=== PATIENT | female | born 1960 | race American Indian/Alaskan Native ===

== ENCOUNTER 2017-03-16 02:56 | Emergency (ER) | payer BC ==
[2017-03-16 02:56] VITALS: BMI 42.0
[2017-03-16 03:18] VITALS: RESP 18; TEMP 98.6
--- NOTE | 2017-03-16 03:31 | ED PDOC ---
Arrival/HPI <Pelon Jorgensen - Last Filed: 03/16/17 06:16> - History of Present Illness Time/Duration: < week Symptom Onset: Sudden Symptom Course: Unchanged Quality: Stabbing Context: Home <Sandra Miller - Last Filed: 03/16/17 07:45> - General Chief Complaint: Back Pain Time Seen by Provider: 03/16/17 02:59 - History of Present Illness Narrative History of Present Illness (Text): 03/16/17 03:27 56 y/o F with PMHx of HTN, PE in past, chronic low back pain presents for right sided low back pain that began about 3 days ago. Pain improved 2 days ago but then return yesterday. Patient radiated to right side of abdomen. Pain is intermittent and sharp in nature. Currently pain is 10/10 in nature. Patient states when pain is present, it is associated with nausea. Patient also complains of right calf "Juan Jose horse". Patient denies having any dysuria, hematuria, trauma to back, abd pain, D/C, F/C. Denies having any numbness or tingling, or any urinary or bowel incontinence. (Sandra Miller) Past Medical History - Provider Review Nursing Documentation Reviewed: Yes - Travel History Have you recently traveled outside [place] w/in the past 3 mons?: No - Cardiac Hx Cardiac Disorders: Yes Hx Hypertension: Yes - Pulmonary Hx Respiratory Disorders: No - Neurological Hx Neurological Disorder: No - HEENT Hx HEENT Disorder: No - Renal Hx Renal Disorder: No - Endocrine/Metabolic Hx Endocrine Disorders: No - Hematological/Oncological Hx Blood Disorders: No - Integumentary Hx Dermatological Disorder: No - Musculoskeletal/Rheumatological Hx Musculoskeletal Disorders: No - Gastrointestinal Hx Gastrointestinal Disorders: No - Genitourinary/Gynecological Hx Genitourinary Disorders: No - Psychiatric Hx Psychophysiologic Disorder: No Hx Substance Use: No - Surgical History Hx Hysterectomy: Yes (2009) <Sandra Miller - Last Filed: 03/16/17 07:45> Family/Social History - Physician Review Nursing Documentation Reviewed: Yes Family/Social History: Unknown Family HX Smoking Status: Never Smoked Hx Alcohol Use: No Hx Substance Use: No <Sandra Miller - Last Filed: 03/16/17 07:45> Allergies/Home Meds <Pelon Jorgensen - Last Filed: 03/16/17 06:16> <Sandra Miller - Last Filed: 03/16/17 07:45> Allergies/Adverse Reactions: Allergies Penicillins Allergy (Verified 03/16/17 03:10) ITCHING Review of Systems - Review of Systems Constitutional: Normal. absent: Fatigue, Fevers Eyes: Normal. absent: Vision Changes, Photophobia ENT: Normal. absent: Sore Throat, Rhinorrhea Respiratory: Normal. absent: SOB, Cough, Sputum, Wheezing Cardiovascular: Normal, Calf Pain. absent: Chest Pain, Edema Gastrointestinal: Normal. absent: Abdominal Pain, Constipation, Diarrhea, Nausea, Vomiting Genitourinary Female: Normal. absent: Dysuria, Frequency, Hematuria Musculoskeletal: Back Pain (right low back pain ) Skin: Normal. absent: Rash, Pruritis, Skin Lesions Neurological: Normal. absent: Headache, Dizziness, Focal Weakness Endocrine: Normal. absent: Diaphoresis, Polyuria Hemo/Lymphatic: Normal. absent: Adenopathy, Easy Bleeding <Sandra Miller - Last Filed: 03/16/17 07:45> Physical Exam Temperature: Afebrile Blood Pressure: Hypertensive Pulse: Regular Respiratory Rate: Normal Appearance: Positive for: Uncomfortable Pain Distress: Moderate Mental Status: Positive for: Alert and Oriented X 3 - Systems Exam Head: Present: Atraumatic, Normocephalic Extroacular Muscles: Present: EOMI Mouth: Present: Moist Mucous Membranes Respiratory/Chest: Present: Clear to Auscultation, Good Air Exchange. No: Respiratory Distress, Accessory Muscle Use, Wheezes, Rales, Rhonchi Cardiovascular: Present: Regular Rate and Rhythm, Normal S1, S2. No: Murmurs, Rub, Gallop, Muffled Abdomen: Present: Normal Bowel Sounds. No: Tenderness, Distention, Peritoneal Signs, Guarding Back: Present: Paraspinal Tenderness (right lumbar region ). No: CVA Tenderness , Midline Tenderness, Pain with Leg Raise Lower Extremity: Present: Normal Inspection, NORMAL PULSES. No: Edema, CALF TENDERNESS, Swelling Neurological: Present: GCS=15 Skin: Present: Warm, Dry, Normal Color. No: Rashes Psychiatric: Present: Alert, Oriented x 3, Normal Insight, Normal Concentration <Sandra Miller - Last Filed: 03/16/17 07:45> Vital Signs Temp Pulse Resp BP Pulse Ox 03/16/17 05:30 63 18 126/57 L 98 03/16/17 03:17 98.6 F 64 18 155/74 H 97 Medical Decision Making <Pelon Jorgensen - Last Filed: 03/16/17 06:16> - Lab Interpretations I have reviewed the lab results: Yes Interpretation: All labs normal <Sandra Miller - Last Filed: 03/16/17 07:45> ED Course and Treatment: Impression: Pt seen and evaluated with medical manager. Pt, whose past medical history includes hypertension, PE, and chronic lower back pain, presents for intermittent right lower back pain for 3 days radiating to abdomen. Also complaining of nausea and right calf cramping. Aware and agree with HPI, clinical findings, plan, and management. Plan: -- US Duplex Lower Extremities -- Labs -- Urinalysis -- Toradol -- Reassess and disposition (Pelon Jorgensen) 03/16/17 03:33 56 y/o F presents for right low back pain and right LE pain Will check CBC, CMP, UA, urinalysis Will get CT of abd/pelvis Patient will be given toradol 30 mg IVP 03/16/17 06:14 CT of abd pelvis is noted to be negative. Awaiting urinalysis and LE US. Patient states pain has improved after toradol shot (Sandra Miller) - Lab Interpretations Lab Results: 03/16/17 03:50 03/16/17 03:50 Lab Results 03/16/17 06:10: Urine Color Yellow, Urine Appearance Clear, Urine pH 7.0, Ur Specific [place] 1.020, Urine Protein Negative, Urine Glucose (UA) Negative, Urine Ketones Negative, Urine Blood Negative, Urine Nitrate Negative, Urine Bilirubin Negative, Urine Urobilinogen 0.2, Ur Leukocyte Esterase Negative 03/16/17 03:50: Sodium 140, Potassium 4.1, Chloride 100, Carbon Dioxide 29, Anion Gap 15, BUN 15, Creatinine 0.6, Est GFR ( Amer) > 60, Est GFR (Non- Af Amer) > 60, Random Glucose 165 H, Calcium 9.5, Total Bilirubin 0.4, AST 22, ALT 22, Alkaline Phosphatase 82, Total Protein 7.5, Albumin 4.2, Globulin 3.3, Albumin/Globulin Ratio 1.3 03/16/17 03:50: WBC 10.2 D, RBC 3.73, Hgb 10.5 L, Hct 32.4 L, MCV 86.9, MCH 28.2, MCHC 32.4, RDW 13.3, Plt Count 256, MPV 9.6 - RAD Interpretation Narrative RAD Interpretations (Text): 03/16/17 06:14 Ct abd/pelvis negative 03/16/17 07:45 LE US negative B/L (Sandra Miller) Radiology Orders: 03/16/17 03:23 DUPLEX LOWER EXTRM VEIN BILAT [US] Stat 03/16/17 04:48 ABD & PELVIS W/O PO OR IV CONT [CT] Stat - Medication Orders Current Medication Orders: Discontinued Medications Ketorolac Tromethamine (Toradol) 30 mg IVP STAT STA Stop: 03/16/17 03:25 Last Admin: 03/16/17 03:55 Dose: 30 mg - PA / P[employer] AND PENCILS DIPPER / Resident Statement / has reviewed & agrees with the documentation as recorded. / has examined the patient and agrees with the treatment plan. <Pelon Jorgensen - Last Filed: 03/16/17 06:16> Disposition/Present on Arrival <Pelon Jorgensen - Last Filed: 03/16/17 06:16> - Present on Arrival Any Indicators Present on Arrival: No History of DVT/PE: No History of Uncontrolled Diabetes: No Urinary Catheter: No History of Decub. Ulcer: No History Surgical Site Infection Following: None - Disposition Have Diagnosis and Disposition been Completed?: Yes Disposition Time: 06:53 Patient Plan: Discharge <Sandra Miller - Last Filed: 03/16/17 07:45> - Disposition Diagnosis: Back pain Disposition: HOME/ ROUTINE Patient Problems: Current Active Problems Problem Status Onset Back pain Acute Condition: GOOD Additional Instructions: Ruby Chilel, thank you for letting us take care of you today. Your provider was Dr. Sandra Miller You were treated for back pain. The emergency medical care you received today was directed at your acute symptoms. If you were prescribed any medication, please fill it and take as directed. It may take several days for your symptoms to resolve. Return to the Emergency Department if your symptoms worsen, do not improve, or if you have any other problems. Please contact your doctor or call one of the physicians/clinics you have been referred to that are listed on the Patient Visit Information form that is included in your discharge packet. Bring any paperwork you were given at discharge with you along with any medications you are taking to your follow up visit. Our treatment cannot replace ongoing medical care by a primary care provider (PCP) outside of the emergency department. Thank you for allowing the [facility] team to be part of your care today. If you had an X-Ray or CT scan: A Radiologist will review the ED reading if any change in treatment is needed we will contact you. If you had a blood, urine, or wound culture: It will take several days for the results, if any change in treatment is needed we will contact you. If you had an STI test: It will take 48 hours for the results. Please call after 1 week if you have not heard back. Prescriptions: Ibuprofen [Motrin] 600 mg PO TID #15 tab Referrals: Uli Murillo MD [Primary Care Provider] - Follow up with primary Forms: [employer] (Pakistani)
[2017-03-16 04:10] LABS: ALB/GLOB RATIO 1.3 (1.1-1.8); ALBUMIN 4.2 g/dL (3.0-4.8); ALT/SGPT 22 U/L (7-56); AST/SGOT 22 U/L (15-39); BLOOD UREA NITROGEN 15 mg/dL (7-21); CALCIUM 9.5 mg/dL (8.4-10.5); GFR AFRICAN-AMERICAN > 60; GFR NON-AFRICAN AMERICAN > 60
[2017-03-16 04:11] LABS: HEMOGLOBIN 10.5 g/dL (12.0-16.0); MEAN CELL VOLUME 86.9 fl (80.0-105.0); MEAN CORPUSCULAR HEMOGLOBIN 28.2 pg (25.0-35.0); MEAN CORPUSCULAR HGB CONC 32.4 g/dl (31.0-37.0); MEAN PLATELET VOLUME 9.6 fl (7.0-11.0); RBC 3.73 10^6/uL (3.5-6.1); RED CELL DISTRIBUTION WIDTH 13.3 % (11.5-14.5); WHITE BLOOD COUNT 10.2 10^3/ul (4.5-11.0)
[2017-03-16 05:31] VITALS: PULSE 63; O2SAT 98
[2017-03-16 06:43] LABS: URINE BILIRUBIN NEGATIVE (NEGATIVE); URINE BLOOD NEGATIVE (NEGATIVE); URINE GLUCOSE (UA) NEGATIVE (NEGATIVE); URINE LEUKOCYTE ESTERASE NEGATIVE Leu/uL (NEGATIVE); URINE NITRATE NEGATIVE (NEGATIVE); URINE PROTEIN NEGATIVE mg/dL (<30 mg/dL); URINE UROBILINOGEN 0.2 E.U./dL (<1 E.U./dL)
[2017-03-16 06:47] LABS: URINE APPEARANCE CLEAR (CLEAR); URINE COLOR YELLOW (YELLOW)
[2017-03-16 07:48] VITALS: BP 133/55
--- NOTE | 2017-03-16 08:27 | US ---
HISTORY: Leg pain and swelling. Evaluate for DVT PHYSICIAN(S): Noel Murillo MD. TECHNIQUE: Duplex sonography and color-flow Doppler with graded compression were used to evaluate the deep venous systems of both lower extremities. FINDINGS: The visualized deep venous systems of both lower extremities are sonographically normal and compressible. Normal wave forms and augmentation are seen. There is no sonographic evidence for deep venous thrombosis in the visualized segments of both lower extremities. IMPRESSION: No sonographic evidence for deep venous thrombosis in the visualized segments of both lower extremities.
--- NOTE | 2017-03-16 09:42 | CT ---
PROCEDURE: CT Abdomen and Pelvis without intravenous contrast HISTORY: Abdominal and back pain she COMPARISON: 11/22/2012 CT abdomen and pelvis. Summary of findings on the comparison examination: Nonobstructing right renal stone. No ureteral stone. TECHNIQUE: Technique. Unenhanced study. Neither oral nor intravenous contrast administered. Radiation dose: Total exam DLP = 1218.06 mGy-cm. This CT exam was performed using one or more of the following dose reduction techniques: Automated exposure control, adjustment of the mA and/or kV according to patient size, and/or use of iterative reconstruction technique. FINDINGS: LOWER THORAX: Unremarkable. LIVER: Hepatic steatosis. No focal masses. No intrahepatic bile duct dilatation or perihepatic ascites. GALLBLADDER AND BILE DUCTS: Unremarkable. PANCREAS: Unremarkable. No gross lesion or ductal dilatation. SPLEEN: Unremarkable. ADRENALS: Unremarkable. No mass. KIDNEYS AND URETERS: Unremarkable. No hydronephrosis. No solid mass. VASCULATURE: Unremarkable. No aortic aneurysm. BOWEL: Unremarkable. No obstruction. No gross mural thickening. APPENDIX: Unremarkable. Normal appendix. PERITONEUM: Unremarkable. No free fluid. No free air. LYMPH NODES: Unremarkable. No enlarged lymph nodes. BLADDER: Unremarkable. REPRODUCTIVE: Unremarkable. BONES: No acute fracture. OTHER FINDINGS: None. IMPRESSION: No significant or acute findings to account for/ related to the clinical presentation. Additional benign and/or incidental findings described above. Concordant results (preliminary interpretation) provided by [facility]. Procedure Completed: 04:58. Preliminary ([facility]) Report: Dictated and Authenticated: 08:44. Final Interpretation: 09:40. March 16, 2017.
== END 2017-03-16 08:27 | disposition home or self-care (01) ==
LOC: ED 02:56
DX: M54.9 Dorsalgia, unspecified (principal); I10 Essential (primary) hypertension
CPT/HCPCS: 74176; 80053; 81003; 85027; 93970; 96374; 99284; J1885

== ENCOUNTER 2018-09-18 12:18 | Outpatient (CLI) | payer BC | END 2018-09-18 12:19 | disposition home or self-care (01) | LOC: RAD 12:18 ==

== ENCOUNTER 2018-09-24 12:12 | Outpatient (CLI) | payer BC | END 2018-09-24 12:13 | disposition home or self-care (01) | LOC: RAD 12:12 | DX: M81.0 Age-related osteoporosis without current pathological fracture (principal); I73.9 Peripheral vascular disease, unspecified; R32 Unspecified urinary incontinence; Z86.711 Personal history of pulmonary embolism ==